=== PATIENT | female | born 1945 | race Two or more races ===

== ENCOUNTER 2024-11-22 23:41 | Emergency (ER) | payer MEDICARE, MEDICAID, SELFPAY ==
[2024-11-23 00:57] VITALS: BP 170/80; PULSE 120; RESP 20; TEMP 38.4; O2SAT 90
--- NOTE | 2024-11-23 01:34 | PD.EDRME ---
Rapid Medical Screening Exam RME Arrival date/time: 11/22/24 23:41 Chief Complaint: Headache Time Seen by Provider: 11/23/24 01:00 Vital signs: Vital Signs Temperature 101.1 F H 11/23/24 00:57 Pulse Rate 120 H 11/23/24 00:57 Respiratory Rate 20 11/23/24 00:57 Blood Pressure 170/80 H 11/23/24 00:57 Pulse Oximetry (%) 90 L 11/23/24 00:57 Oxygen Delivery Method Room Air 11/23/24 00:57 Vital signs reviewed by provider: Yes RME Narrative: 79-year-old female presents to the ED with complaint of headache, chest pain, urinary frequency for the past 4 to 5 days. I have greeted and performed a focused initial assessment of this patient. A comprehensive ED assessment and evaluation of the patient, analysis of all test results, and completion of the medical decision making process will be conducted by additional ED providers.
--- NOTE | 2024-11-23 01:37 | EKG_ITS ---
[facility] Test Date: 2024-11-23 Pat Name: MARIE CRUZ Department: Room: - Gender: Female [employer]ul[employer]izer Head: : 1945 Requested By: Valeria Costa Order Number: [id number] Reading MD: Valeria Costa Measurements Intervals Dola Rate: 121 P: 0 CA: 158 QRS: 5 QRSD: 80 T: 101 QT: 301 QTc: 429 Interpretive Statements SINUS TACHYCARDIA MINIMAL ST DEPRESSION [0.025+ mV ST DEPRESSION] ABNORMAL QRS-T ANGLE [QRS-T AXIS DIFFERENCE > 60] Compared to ECG 03/05/2019 13:18:39 ST (T wave) deviation now present Sinus rhythm no longer present /store/S0/[id number].pdf
--- NOTE | 2024-11-23 01:37 | XR_ITS ---
Examination: PA chest single view TECHNIQUE: Upright PA chest single view Date and time: November 23, 2024 0148 hours INDICATIONS: Headache chest pain beginning 5 days ago. FINDINGS: Mild prominence left ventricle Moderate vascular congestion Accentuation interstitial markings No lobar pneumonia Mild osteopenia IMPRESSION: Suspicious for early heart failure
[2024-11-23 02:33] LABS: Basophils % (Auto) 0 % (0-2.5); Eosinophils % (Auto) 0 % (0-10); Hematocrit 40.3 % (36.0-46.0); Immature Granulocytes % (Auto) 1 % (0-0); Immature Granulocytes Auto 0.08 Thou/mm3 (0.00-0.00); Lymphocytes # (Auto) 0.9 Thou/mm3 (1.0-4.8); Lymphocytes % (Auto) 8 % (10-50); Mean Corpuscular HGB Conc 32.3 g/dl (31.0-37.0); Mean Corpuscular Hemoglobin 29.9 pg (25.0-35.0); Mean Corpuscular Volume 93 fL (80-100); Monocytes # (Auto) 0.6 Thou/mm3 (0.0-0.8); Monocytes % (Auto) 5 % (0-12); Neutrophils # (Auto) 9.1 Thou/mm3 (1.8-7.7); Neutrophils % (Auto) 85 % (37-80); Nucleated Red Blood Cell % 0 /100 WBC (0); Platelet Count 164 Thou/mm3 (140-440); RDW Standard Deviation 54.2 fL (36.4-46.3); Red Blood Count 4.35 Miln/mm3 (4.00-5.20); White Blood Count 10.7 Thou/mm3 (3.6-11.0)
[2024-11-23 02:47] LABS: Partial Thromboplastin Time 30.2 Seconds (22.0-36.0); Prothrombin Time 11.3 Seconds (9.0-12.2)
[2024-11-23 02:49] LABS: B-Type Natriuretic Peptide 98 pg/mL (0-100)
[2024-11-23 03:37] LABS: Alanine Aminotransferase 39 U/L (10-49); Albumin, Serum 4.2 gm/dL (3.4-4.8); Albumin/Globulin Ratio 1.3 (1.2-2.2); Alkaline Phosphatase 118 U/L (46-116); Anion Gap 10 (7-16); Aspartate Amino Transferase 42 U/L (0-34); BUN/Creatinine Ratio 20 Ratio (12-20); Bilirubin,Total 0.8 mg/dL (0.3-1.2); Blood Urea Nitrogen 20 mg/dL (9-23); Calcium 9.7 mg/dL (8.3-10.6); Calcium (Corrected) 9.7 mg/dL (8.5-10.1); Carbon Dioxide 28.3 mMol/L (20.0-31.0); Chloride 94 mMol/L (98-107); Globulin 3.3 gm/dL (2.3-3.5); Glucose 214 mg/dL (74-106); Osmolality,Calculated 273 (275-295); Potassium 3.6 mMol/L (3.4-5.1); Sodium 132 mMol/L (136-145); Total Protein 7.5 gm/dL (5.7-8.2); Troponin I < 0.020 ng/mL (0.0-0.045); eGFR 57 See Note
[2024-11-23 03:48] LABS: LDH (Lactate Dehydrogenase) 272 U/L (120-246)
[2024-11-23 03:51] LABS: Collection Type, Urine Clean Catch
[2024-11-23 04:13] LABS: Bacteria,Urine Rare; Bilirubin,Urine Negative (Negative); Blood,Urine 1+ (Negative); Clarity,Urine Clear (Clear/Hazy); Color,Urine Lt-Yellow (Lt Yel-Yel); Glucose, Urine Negative (Negative); Hyaline Casts,Urine < 1 /hpf (0-1); Ketones,Urine Negative (Negative); Leukocyte Esterase,Urine Negative (Negative); Nitrite,Urine Negative (Negative); Protein,Urine 1+ (Neg - Trace); RBC,Urine 5 /hpf (0-3); Specific Gravity,Urine 1.012 (1.001-1.035); Squamous Epithelial Cell,Urine < 1 /hpf (0-5); Urobilinogen,Urine Negative mg/dL (0.0-1.0); WBC,Urine 6 /hpf (0-5)
--- NOTE | 2024-11-23 04:16 | PC.NURSE ---
PER SECURITY PT WALKED OUT OF ER AND LEFT.
[2024-11-23 04:25] LABS: Amphetamine/Methamp Scrn,U Negative (Negative); Barbiturate Screen,Urine Negative (Negative); Benzodiazepines Screen,Urine Negative (Negative); Benzoylecgonine Screen, Ur Negative (Negative); Fentanyl Screen,Urine Negative (Negative); Opiate Screen,Urine Positive (Negative); THC Screen,Urine Negative (Negative)
== END 2024-11-23 04:30 | disposition left against medical advice (07) ==
PROVIDERS: Physician Assistant; Emergency Provider Emergency Medicine; PCP Internal Medicine
DX: R51.9 Headache, unspecified (principal); R07.9 Chest pain, unspecified; Z53.29 Procedure and treatment not carried out because of patient's decision for other reasons; R35.0 Frequency of micturition
CPT/HCPCS: 36415; 71045; 80053; 80307; 81001; 83615; 83735; 83880; 84484; 85025; 85610; 85730; 87077; 87086; 87186; 99281

== ENCOUNTER → 2025-02-22 | Outpatient (CLI) | payer MEDICARE, SELFPAY ==
--- NOTE | 2025-02-22 12:30 | XR_ITS ---
Examination: Arterial duplex lower extremity study. Date and time of exam: February 22, 2025, 1356 hours INDICATIONS: Bilateral leg swelling and pain beginning 2 months ago. Findings: Duplex sonographic imaging of the lower extremity arteries using B-mode/Bolanos scale imaging and Doppler spectral analysis and color flow. Ankle brachial indices have been recorded. Right common femoral artery demonstrates triphasic flow. Right superficial femoral artery demonstrates triphasic flow. Right popliteal artery demonstrates triphasic flow. Right posterior tibial artery demonstrated triphasic flow. Right ankle/brachial index is 1.1. Left common femoral artery demonstrates triphasic flow. Left superficial femoral artery demonstrates monophasic flow. Left popliteal artery demonstrates biphasic flow. Left posterior tibial artery demonstrated monophasic flow. Left ankle/brachial index is 0.7. Impression: Severe left lower extremity obstructive arterial disease
--- NOTE | 2025-02-22 13:12 | XR_ITS ---
Examination: Knee, left , 3 views Technique: Knee AP, lateral, oblique 3 views Date and time of exam: February 22, 2025, 1343 hours INDICATIONS: Left knee pain several years. FINDINGS: Prominent osteopenia. Advanced tricompartment osteoarthritis. No fracture. IMPRESSION: Advanced tricompartment osteoarthritis.
== END | disposition home or self-care (01) ==
DX: M17.12 Unilateral primary osteoarthritis, left knee (principal); I77.89 Other specified disorders of arteries and arterioles
CPT/HCPCS: 73562; 93925